=== PATIENT | male | born 1940 | race Caucasian/White ===

== ENCOUNTER 2018-06-22 22:22 | Emergency (ER) | payer MEDICARE ==
--- NOTE | 2018-06-22 23:54 | ED ---
HPI Chest Pain - HPI Summary HPI Summary: Patient is a 77 y/o M presenting to ED with complaints of left anterior chest pain. Sx onset around 2029 today after eating a piece of pie. He additionally notes inspiration aggravates chest pain. No recent illness, he states that he was asymptomatic throughout the day. Patient does note that he had been raking leaves for a couple of hours today. No cough, no nausea, no diaphoresis. PMHx of cardiac disease is denied. PMHx of HTN is endorsed, he claims he is pre- diabetic. He is on daily ASA, lisinopril, metoprolol. On triage, pain is rated 4 /10, movement is noted to aggravate Sx, nothing is reported to alleviate Sx. Home medications and allergies are reviewed. - History of Current Complaint Chief Complaint: EDChestPainROMI Time Seen by Provider: 06/22/18 23:50 Hx Obtained From: Patient Onset/Duration: Started Hours Ago, Still Present Timing: Constant, Lasting Hours - Sx onset around 2029 Current Severity: Moderate - 4/10 Pain Intensity: 4 Pain Scale Used: 0-10 Numeric - 4/10 Chest Pain Location: Left Anterior Aggravating Factor(s): Movement, Deep Breaths Alleviating Factor(s): Nothing Associated Signs and Symptoms: Positive: Chest Pain. Negative: Diaphoresis, Nausea, Cough, Productive Cough, Nonproductive Cough - Allergy/Home Medications Allergies/Adverse Reactions: Allergies Allergy/AdvReac Type Severity Reaction Status Date / Time No Known Allergies Allergy Verified 09/06/14 06:50 PMH/Surg Hx/FS Hx/Imm Hx Endocrine/Hematology History: Denies: Hx Sickle Cell Disease Cardiovascular History: Reports: Hx Hypertension - WELL CONTROLLED WITH MEDICATION, Other Cardiovascular Problems/Disorders - HIGH CHOLESTEROL ON MEDICATION Denies: Hx Pacemaker/ICD Respiratory History: Denies: Other Respiratory Problems/Disorders GI History: Denies: Other GI Disorders History: Denies: Other Problems/Disorders Musculoskeletal History: Denies: Other Musculoskeletal History Sensory History: Reports: Hx Cataracts - BILATERAL, Hx Contacts or Glasses - READING Denies: Hx Hearing Aid Opthamlomology History: Reports: Hx Cataracts - BILATERAL, Hx Contacts or Glasses - READING Neurological History: Denies: Other Neuro Impairments/Disorders Psychiatric History: Denies: Hx Panic Disorder - Surgical History Surgery Procedure, Year, and Place: HAS HAD CARDIAC CATH AND COLONOSCOPY Hx Anesthesia Reactions: No Infectious Disease History: No Infectious Disease History: Denies: Traveled Outside the [place] in Last 30 Days - Family History Known Family History: Negative: Cardiac Disease, Hypertension, Diabetes - Social History Alcohol Use: None Substance Use Type: Reports: None Smoking Status (MU): Former Smoker Type: Cigarettes Amount Used/How Often: 1PPD 40 YRS Have You Smoked in the Last Year: No Review of Systems Negative: Skin Diaphoresis Positive: Chest Pain Negative: Cough Negative: Nausea All Other Systems Reviewed And Are Negative: Yes Physical Exam - Summary Physical Exam Summary: Appearance: Well-appearing, Well-nourished, lying in bed comfortably Skin: Warm, dry, no obvious rash Eyes: sclera anicteric, no conjunctival pallor ENT: mucous membranes moist, pharynx appears normal Neck: Supple, nontender Respiratory: Clear to auscultation, no signs of respiratory distress Cardiovascular: Normal S1, S2. No murmurs. Normal distal pulses in tibial and radial bilaterally. Abdomen: Soft, nontender, normal active bowel sounds present Musculoskeletal: Normal, Strength/ROM Intact Neurological: A&Ox3, awake and alert, mentation is normal, speech is fluent and appropriate Psychiatric: affect is normal, does not appear anxious or depressed Triage Information Reviewed: Yes Vital Signs On Initial Exam: Initial Vitals Temp Pulse Resp BP Pulse Ox 98.5 F 66 18 183/88 94 06/22/18 22:23 06/22/18 22:23 06/22/18 22:23 06/22/18 22:23 06/22/18 22:23 Vital Signs Reviewed: Yes Diagnostics - Vital Signs Vital Signs Temp Pulse Resp BP Pulse Ox 06/22/18 22:23 98.5 F 66 18 183/88 94 - Laboratory Result Diagrams: 06/23/18 00:33 06/23/18 00:33 Lab Statement: Any lab studies that have been ordered have been reviewed, and results considered in the medical decision making process. - Radiology chest x-ray Radiology Interpretation Completed By: ED Physician Summary of Radiographic Findings: No acute process, pending official report - EKG 2241 Cardiac Rate: NL - rate of 69 BPM EKG Rhythm: Sinus Rhythm Summary of EKG Findings: EKG showed sinus rhythm with rate of 69 BPM, no STEMI. Re-Evaluation - Re-Evaluation First Eval Re-Evaluation Time: 02:30 Comment: Results of labs and tests were discussed with patient, he will be discharged to home. He is agreeable with this. Chest Pain Course/Dx - Course Course Of Treatment: Patient is a 77 y/o M presenting to ED with complaints of left anterior chest pain. Sx onset around 2030 today after eating a piece of pie. He additionally notes inspiration aggravates chest pain. No recent illness , he states that he was asymptomatic throughout the day. Patient does note that he had been raking leaves for a couple of hours today. No cough, no nausea, no diaphoresis. PMHx of cardiac disease is denied. PMHx of HTN is endorsed, he claims he is pre-diabetic. He is on daily ASA, lisinopril, metoprolol. Physical exam is unremarkable. CXR - No acute process, pending official report. EKG showed sinus rhythm with rate of 69 BPM, no STEMI. Labs showed Hgb 13.8, glucose 106, lactic acid 1.4. First trop was 0.01, second was 0.01. Results of labs and tests were discussed with patient, he will be discharged to home. He is agreeable with this. - Diagnoses Provider Diagnoses: Atypical chest pain Discharge - Sign-Out/Discharge Documenting (check all that apply): Patient Departure - discharge Patient Received Moderate/Deep Sedation with Procedure: No - Discharge Plan Condition: Stable Disposition: HOME Patient Education Materials: Chest Pain (ED) Referrals: Kai Mcclure DO [Primary Care Provider] - 1 Week Additional Instructions: The tests we ran on your heart tonight did not show any sign of injury or instability there so it is safe for you to go home. Most likely is some chest wall irritation, perhaps related to the raking. Rest over the next few days and take tylenol for pain, but if it worsens or you develop new symptoms we should see you back here. - Billing Disposition and Condition Condition: STABLE Disposition: Home - Attestation Statements Document Initiated by Codieibe: Yes Documenting Scribe: BETSY PICKARD Provider For Whom Cain is Documenting (Include Credential): LIGIA GARCES MD Scribe Attestation: BETSY Lorenzo, codieibed for LIGIA GARCES MD on 06/27/18 at 1850. Scribe Documentation Reviewed: Yes Provider Attestation: The documentation as recorded by the scribe, BETSY PICKARD accurately reflects the service I personally performed and the decisions made by me, LIGIA GARCES MD Status of Cain Document: Viewed
[2018-06-23 00:59] LABS: ABS Basophils 0.1 10^3/ul (0-0.2); ABS Eosinophils 0.1 10^3/ul (0-0.6); ABS Lymphocytes 2.2 10^3/ul (1.0-4.8); ABS Monocytes 0.7 10^3/ul (0-0.8); ABS Neutrophils 4.6 10^3/ul (1.5-7.7); ABS Nucleated RBC 0 10^3/ul; Albumin/Globulin Ratio 1.3 (1-3); BUN/Creatinine Ratio 17.9 (8-20); Calcium 9.1 mg/dL (8.6-10.3); EGFR African American 93.5 (>60); EGFR Non-African American 77.3 (>60); Eosinophil % 1.8 %; Globulin 3.1 g/dL (2-4); Hematocrit 41 % (36-46); Hemoglobin 13.8 g/dL (14.0-18.0); Lymphocyte % 28.7 %; Mean Corpuscular HGB Conc 34 g/dL (31-36); Mean Corpuscular Hemoglobin 29 pg (27-31); Mean Corpuscular Volume 86 fL (80-94); Nucleated Red Blood Cells % 0; Platelet Count 211 10^3/uL (150-450); Potassium 3.8 mmol/L (3.5-5.0); Red Blood Count 4.75 10^6 /uL (4.18-5.48); Red Cell Distribution Width 15 % (10.5-15); Total Bilirubin 0.5 mg/dL (0.2-1.0); Total Protein 7.1 g/dL (6.4-8.9); White Blood Count 7.7 10^3/uL (3.5-10.8)
[2018-06-23 01:00] LABS: Troponin I 0.01 ng/mL (<0.04)
[2018-06-23 02:57] VITALS: BP 140/82
--- NOTE | 2018-06-23 07:59 | PN ---
Progress Note - Progress Note Date of Service: 06/23/18 - Dr. Cummins report CXR with LESTER mass, in pt seen with CP Note: Report on CXR after hours by Dr. Torrez was no acute disease. Called pt and his Maru listened on the phone. Verified name and . Informed pt of the mass. Hx smoking, quit 15 yrs ago. Denies CP, SOB currently. Has Dr. Mcclure. Advised pt that he needs to see Dr. Mcclure as soon as possible. Return to the ER if any new or worsening symptoms. Pt and voice understanding.
== END 2018-06-23 02:56 | disposition home or self-care (01) ==
LOC: ED 22:22
DX: R07.89 Other chest pain (principal); R91.8 Other nonspecific abnormal finding of lung field; R73.03 Prediabetes; I10 Essential (primary) hypertension; E78.5 Hyperlipidemia, unspecified; Z87.891 Personal history of nicotine dependence; Z79.82 Long term (current) use of aspirin
CPT/HCPCS: 36415; 71045; 80053; 83605; 84484; 85025; 93005; 99282

== ENCOUNTER 2018-08-04 11:29 | Day surgery (SDC) | payer MEDICARE ==
[~2018-08-04 11:29] MED LIST: Buffered Lidocaine 1% SYRIN* 1 ML/SYRINGE INTRADERM ONE; Dexamethasone IV* 4 MG/ML 1 ML (4 MG) IV SLOW PU ONE; Famotidine IV* 10 MG/ML 2 ML (20 mg) IV ONE; Lactated Ringers 1000 ML Bag* 1,000 ML IV SCH
[2018-08-04] MEDS ORDERED: Dexamethasone IV* 4 MG/ML 1 ML (4 MG) ONE (11:55)
[2018-08-04] MEDS ORDERED: Buffered Lidocaine 1% SYRIN* 1 ML/SYRINGE INTRADERM ONE (11:56)
[2018-08-04] MEDS ORDERED: Famotidine IV* 10 MG/ML 2 ML (20 mg) ONE (11:56)
[2018-08-04] MEDS ORDERED: Levalbuterol 1.25MG/0.5ML NEB ONE (13:03)
[2018-08-04] MEDS ORDERED: Propofol* 10 MG/ML 20 ML BTL ONE (13:14)
[2018-08-04] MEDS ORDERED: Lidocaine 2% PF * 5 ML VIAL ONE (13:14)
[2018-08-04] MEDS ORDERED: ROPIVACAINE 5 MG/ML 30 ML BTL (0.5%) ONE (13:18)
[2018-08-04] MEDS ORDERED: Remifentanil* 2 MG VIAL ONE (14:29)
[2018-08-04] MEDS ORDERED: Ondansetron INJ* 2 MG/ML VIAL IV PRN (15:03)
[2018-08-04] MEDS ORDERED: Naloxone* 0.4 MG/ML 1 ML VIAL IV PRN (15:03)
[2018-08-04] MEDS ORDERED: fentaNYL* 50 MCG/ML 2 ML VIAL (100 MCG VIAL) IV PRN (15:03)
[2018-08-04 15:51] VITALS: BP 145/76
--- NOTE | 2018-08-04 22:16 | PRO ---
BRONCHOSCOPY REPORT: DATE OF PROCEDURE: 08/04/18 PROCEDURE PERFORMD BY: Norah Young MD ANESTHESIA: General anesthesia. ANESTHESIOLOGIST: Dr. Long. PREPROCEDURAL DIAGNOSIS: Recently diagnosed lung cancer with CT-guided biopsy. PROCEDURE PERFORMED: Bronchoscopy with endobronchial ultrasound-guided fine- needle aspiration on mediastinal and hilar nodes for lung cancer staging. DESCRIPTION OF PROCEDURE: Informed consent was obtained from the patient prior to the procedure after all the risks and benefits were thoroughly explained. Appropriate time-out was performed and agreed on by the attending staff prior to the procedure. A flexible Olympus bronchoscope was inserted through the ET tube for airway evaluation. The ET tube positioning was confirmed to be 3 cm above the level of roya. Thin secretions were noted predominantly on the right side and were suctioned out. Mild evidence of bronchomalacia was noted on the left side. Bronchoscope was then withdrawn and EBUS bronchoscope was inserted. R4 was then sampled with 2 passes. Rapid on-site evaluation revealed lymphatic tissue, no malignant cells. Station 7 then was accessed with 2 passes. Rapid on-site evaluation revealed lymphatic tissue with no malignant cells. No significant enlargement of R10 or R15 nodes was noted. Broncho-cope was then advanced into L4, which was accessed with 2 passes. Rapid on-site evaluation revealed lymphatic tissue with no malignant cells. L10 was sampled with 2 passes with rapid on-site evaluation revealed inadequate sample. The bronchoscope was then withdrawn and flexible Olympus bronchoscope was reinserted for airway inspection. Minimum bleeding was noted and was suctioned. The patient tolerated the procedure well. The patient was extubated and seen in Recovery in optimal condition. [id number]/[facility] #: [id number] [facility]ITALAnnita
== END 2018-08-04 16:03 | disposition home or self-care (01) ==
LOC: OR 11:29
PROVIDERS: ATTEND Internal Medicine
DX: C34.91 Malignant neoplasm of unspecified part of right bronchus or lung (principal); I48.91 Unspecified atrial fibrillation; Z79.01 Long term (current) use of anticoagulants; I10 Essential (primary) hypertension; Z87.891 Personal history of nicotine dependence; R06.02 Shortness of breath
CPT/HCPCS: 88172; 88173; 88177; 88305; A9270-GY; J1100; J2704; J2795